=== PATIENT | male | born 1985 | race African-American/Black ===

== ENCOUNTER 2020-07-07 06:25 | Emergency (ER) | payer MEDICAID, SELFPAY ==
[2020-07-07 06:35] VITALS: BP 144/76; PULSE 88; RESP 22; TEMP 37.1; O2SAT 100; O2SAT 99; BMI 25.1
[2020-07-07 06:54] VITALS: BP 110/74; PULSE 86; RESP 14; O2SAT 99
--- NOTE | 2020-07-07 06:59 | ED_ITS ---
HPI - Asthma General Chief Complaint: Asthma Stated Complaint: asthma Time Seen by Provider: 07/07/20 06:51 History of Present Illness complaint: asthma attack , shortness of breath and wheezing Onset (ago): day(s) (one) Severity: moderate Context: ran out of meds Associated symptoms: dry cough Asthma History: childhood onset Related Data Previous Rx's Medication Instructions Recorded albuterol sulfate 90 mcg INHALATION Q6H PRN #1 ea 07/07/20 Allergies Allergy/AdvReac Type Severity Reaction Status Date / Time aspirin [ASA] Allergy Mild HIVES Verified 07/07/20 07:01 ibuprofen [IBUPROFEN] Allergy Mild HIVES Verified 07/07/20 07:01 Review of Systems Review of Systems: Yes all other systems are reviewed and are negative Constitutional: Constitutional: Reports no additional constitutional complaints and Denies fever(s) [facility] Past Medical History Medical History (Updated 07/07/20 @ 07:26 by Will Palmer MD) Asthma Heroin abuse Heroin addiction Social History Social History Smoked in Last 30 Days: No Use of substances other than those prescribed or required for medical reasons: Yes Substance Use Type: Heroin Substance Use Frequency: Daily Advance Directives: No Advance Directives Information Provided: No Physical Exam Vital Signs: Vital Signs: Vital Signs Temp Pulse Resp BP Pulse Ox 07/07/20 06:54 86 14 110/74 99 07/07/20 06:35 98.7 F 88 22 H 144/76 H 100 Body Mass Index 25.1 Const: General: cooperative, healthy appearing, comfortable and no acute distress HENMT: Head: Yes normal to inspection and Yes No palpable skull fracture present General nose exam: Normal external nose present Face and sinus: Yes normal facial exam Eyes: General: appearance normal, both eyes and all related structures Neck: Neck: Yes normal visual inspection Chest: Chest palpation & inspection: normal inspection of the chest Resp: Effort & Inspection: normal respiratory effort and audible wheezes ( prolonged expiration, expiratory wheezes.) Cardio: Jugular venous distension: no JVD Rate: regular rate GI: Inspection: Yes normal to inspection Percussion: Yes normal to percussion Auscultation: normal bowel sounds : General: Yes no CVA tenderness Back/Spine/Pelvis: Back: no CVA tenderness Skin: General skin exam: no rashes or lesions noted Course Course Course Narrative: 35 years old male with history of chronic asthma, patient normally use albuterol, patient ran out of albuterol for the past 2 days, patient present with a mild asthma exacerbation. Patient deny any other symptoms in particular no fever, no generalized malaise, no productive cough. Reevaluation(s) Reevaluation #1: Patient felt better after albuterol, and prednisone. Will will discharge the patient with albuterol. MDM - Asthma Differential Diagnosis Differential diagnosis: Likely Acute exacerbation and Pneumonia Medical Records Attestation: I reviewed the patient's medical records. Discharge Plan Discharge Clinical Impression: Asthma with acute exacerbation Patient Disposition: Home, Self-Care Instructions: Bronchospasm (ED) Prescriptions: New albuterol sulfate 90 mcg/actuation aero powdr breath act w/sensor 90 mcg inhalation Q6H PRN (Reason: shortness of breath or wheezing) Qty: 1 RF: 0
[2020-07-07] MEDS: predniSONE 20 MG TABLET 40 MG PO (07:01)
--- NOTE | 2020-07-07 08:11 | PC.NURSE ---
pt lung sounds expiratory wheeze after breathing treatment. RT at bedside, peak flow complete. pt in no resp. distress at this time. waiting re eval from provider.
== END 2020-07-07 08:27 | disposition home or self-care (01) ==
PROVIDERS: Emergency Provider Emergency Medicine
DX: J45.901 Unspecified asthma with (acute) exacerbation (principal); F11.10 Opioid abuse, uncomplicated
CPT/HCPCS: 99284

== ENCOUNTER 2020-08-14 13:13 | Emergency (ER) | payer MEDICAID, SELFPAY ==
[2020-08-14 13:32] VITALS: BP 121/83; BP 138/108; PULSE 102; PULSE 113; RESP 18; O2SAT 97; BMI 23.1
--- NOTE | 2020-08-14 14:19 | ED.OVERDOSE ---
HPI - Overdose General Chief Complaint: Overdose Time Seen by Provider: 08/14/20 14:15 Source: patient Limitations: no limitations History of Present Illness HPI Narrative: This is a 35 years old male presented to the emergency department after an heroin overdose. He received Narcan in the field he is now awake and alert, is not suicidal nor homicidal, he would like to seek detox complaint: accidental overdose Onset (ago): hour(s) Context: Accidental Overdose: wanted to get high Related Data Previous Rx's Medication Instructions Recorded albuterol sulfate 2 puff INHALATION QID PRN #18 g 07/07/20 Allergies Allergy/AdvReac Type Severity Reaction Status Date / Time aspirin [ASA] Allergy Mild HIVES Verified 07/07/20 07:01 ibuprofen [IBUPROFEN] Allergy Mild HIVES Verified 07/07/20 07:01 Review of Systems Review of Systems: Yes all other systems are reviewed and are negative Cardiovascular: Cardiovascular: Denies chest pain, Denies chest pain at rest and Denies chest pain with activity Respiratory: Respiratory: Reports no additional respiratory complaints and Reports no additional respiratory complaints Gastrointestinal: Gastrointestinal: Reports no additional gastrointestinal complaints, Denies abdominal pain and Denies belching Neurologic: Reports system reviewed and no additional complaints, except as documented PMFSH Past Medical History Medical History Asthma Heroin abuse Heroin addiction Social History Social History Alcohol intake: never Smoking Status: Current every day smoker Use of substances other than those prescribed or required for medical reasons: Yes Substance Use Type: Crack/Cocaine and Heroin Substance Use Frequency: Chronic Longstanding Advance Directives: No Advance Directives Information Provided: Yes Physical Exam Vital Signs: Vital Signs: Last Vital Signs Pulse 102 H 08/14/20 13:32 Resp 18 08/14/20 13:32 BP 121/83 08/14/20 13:32 Pulse Ox 97 08/14/20 13:32 Body Mass Index 23.1 Const: General: cooperative Orientation/consciousness: oriented to person, oriented to place and oriented to time HENMT: Head: Yes normal to inspection Eyes: General: appearance normal, both eyes and all related structures Neck: Neck: Yes normal visual inspection, Yes full ROM and Yes no lymphadenopathy Chest: Chest palpation & inspection: normal inspection of the chest and normal palpation of entire chest wall Resp: Effort & Inspection: normal respiratory effort and able to speak in complete sentences Cardio: Jugular venous distension: no JVD Rate: regular rate Rhythm: regular rhythm GI: Inspection: Yes normal to inspection Palpation (GI): nontender and no guarding Skin: General skin exam: no rashes or lesions noted Neuro: General: oriented to person, oriented to place, oriented to time and gait normal Psych: Appearance: grossly normal Mental Status: mental status grossly normal Speech and movement: Normal speech and movement present Affect: Sad affect present Attitude: cooperative Thought process: Normal thought process present Thought content: Normal thought content present Judgement: Good judgement present (Psych) Discharge Plan Discharge Prescriptions: No Action albuterol sulfate 90 mcg/actuation HFA aerosol inhaler 2 puff inhalation QID PRN (Reason: shortness of breath or wheezing) Qty: 18 RF: 0
--- NOTE | 2020-08-14 14:25 | PC.NURSE ---
call to CARE team to come evaluate pt, he is interested in detox.
--- NOTE | 2020-08-14 15:05 | MHC.CARE ---
Spoke to patient in [place] [facility] regarding detox, he stated he is ready for treatment at this time. Reported that earlier today he used two bags of heroin and although it was not an intentional overdose, he was disappointed that he was revived. Stated he has no family or friends, is homeless said he is unsafe to leave and would be suicidal if not able to get into a detox today so will likely need a referral to [facility] Crisis. No beds at [facility], [facility] or [facility]. Patient has recently been to [facility] [place] and left abruptly.
--- NOTE | 2020-08-14 18:26 | MHC.CARE ---
curriculum coach expanded detox bedsearch to [facility] and beyond, no beds available this evening. Options were discussed with pt to follow up with [facility] or self present to [facility] in the morning after 8am. Pt was not agreeable to this and made several suicidal statements to this documentation writer. Pt reported that he wished they hadn't revived him and that he hates the chencho who gave him narcan. Pt made several comments about having and then being treated like shit at the hospital because he's an addict and that he would rather be , that if he was discharged that he would go out, find money to buy more bags of heroin, and would do it again. This information was relayed to ED nurse. Pt was changed over and belongings were inventoried and locked up by security. Pt will be held in ED awaiting a [facility] crisis evaluation.
[2020-08-14 18:37] VITALS: BP 113/62; PULSE 79; RESP 17; TEMP 36.7; O2SAT 98
[2020-08-14 20:00] VITALS: BP 115/62; PULSE 64; RESP 16; O2SAT 99
--- NOTE | 2020-08-14 21:32 | PC.NURSE ---
PATIENT GETTING UP AND WALKING DOWN [place] AWAY FROM STAFF AND SITTER, UNCOOPERATIVE WITH CARE. REFUSING TO STAY LONGER. NOT WANTING TO WAIT FOR BHN, REEVALUATED BY JOHNATHAN REYES AND DR. GIRALDO. AGREEING TO DISCHARGE PATIENT. PATIENT STATING THAT HE WILL LAY BACK IN THE BED AND COOPERATIVE IF HE GETS [place]. TALKING WITH PROVIDER, AGREEABLE IF PATIENT WILL BE COOPERATIVE AND STOP GOING INTO OTHER PATIENTS ROOMS TRYING TO WATCH TV. PATIENT CHANGING OVER AGAIN AND BECOMING UNCOOPERATIVE WITH SECURITY, YELLING AND CONTINUING TO AMBULATE AROUND THE UNIT AND INTO OTHER PATIENTS ROOMS. PROVIDER STATING TO DISCHARGE PATIENT. GIVING PATIENT RESOURCES FOR DETOX AND BHN. PATIENT GIVING THEM BACK TO NURSE AND REFUSING TO TAKE PAPERWORK. ESCORTED OFF PROPERTY BY SECURITY
== END 2020-08-14 21:42 | disposition home or self-care (01) ==
PROVIDERS: Emergency Provider Emergency Medicine
DX: T40.1X1A Poisoning by heroin, accidental (unintentional), initial encounter (principal); Y92.9 Unspecified place or not applicable; F11.10 Opioid abuse, uncomplicated; F17.200 Nicotine dependence, unspecified, uncomplicated; Z71.6 Tobacco abuse counseling; Z71.51 Drug abuse counseling and surveillance of drug abuser
CPT/HCPCS: 99284